=== PATIENT | female | born 1970 | race Caucasian/White ===

== ENCOUNTER 2020-06-09 07:41 | Day surgery (SDC) | payer OTHER, SELFPAY ==
[2020-06-07 16:12] VITALS: BMI 19.2
[2020-06-09] VITALS (7 sets, daily range): BP systolic 89–125; BP diastolic 50–81; PULSE 50–59; RESP 15–16; TEMP 36.2–36.3; O2SAT 98–99
[2020-06-09 08:01] LABS: Urine Pregnancy, HCG Qual. Negative (Negative)
[2020-06-09 08:40] LABS: Coronavirus 19 IgG Antibody Positive (Negative); Coronavirus 19 IgM Antibody Negative (Negative)
--- NOTE | 2020-06-09 09:29 | HMH.ANESCL ---
[facility] Anesthesia Checklist - Patient Identification Patient Identification: Arm Band, Verbal (Name & ) - Structural Data Admitted From: Home Planned Operative Procedure/s: EGD Consent for Planned Operative Procedure(s) Verified: Yes Verified Documents: Surgical Consent, History and Physical - Chart Verification Results Verified: HCG - Additional verifications Patient : No Anesthesia Reactions: No - Airway Assessment C-Spine Mobility Assessed: Yes TMJ Mobility Assessed: Yes Dentition: Good Dentition - Neurological Assessment Level of Consciousness: Awake, Alert, Appropriate, Follows Commands Hx Seizures: No Numbness or tingling in extremities: No - Anesthesia Plan Anesthesia Risk discussed: Yes Anesthesia Plan: Verified ASA Class: III Anesthesia Type: MAC [facility] History I have reviewed the patient's past medical history: Yes Medical History: Reports:: Anxiety, Asthma, Depression, Gastroesophageal Reflux Disease(GERD), Palpitations, Valvular Heart Disease (MVP) Denies:: Cancer, Diabetes Mellitus Type 1, Diabetes Mellitus Type 2, Internal Pacemaker, MRSA, Seizures *Have you ever received a pneumonia vaccine?: No *Have you received a flu vaccine this season?: Yes Other Medical History: Reports: Hypothyroidism Comment:: dysphagia Anesthesia experience/problems:: None Laterality Cases: Bilateral: Tonsillectomy Other Surgeries: Yes: , Hernia Repair, Other. No: Pacemaker Amputation: No Fractures: No Comment: Breast augmentation - *Social History Last grade of school completed: Advanced degree Smoking Status: Never smoker Alcohol Intake: current Alcohol Intake Frequency:: a few times a week Substance Use Type: denies use *Occupational Status:: employed Housing: house Household Members: family *Travel in the last 8 weeks: Inside the [facility] Family Hx:: Other (NA)
--- NOTE | 2020-06-09 09:42 | HMH.PROC ---
[facility] Procedure Note Procedure Note:: Upper Endoscopy Procedure Report: Esophagogastroduodenoscopy with cold biopsies and TTS balloon dilation Endoscopost: Miah Grullon II, MD Referring Physician: Ritesh Garcia MD/ Zhane aKtz MD Date of Procedure: June 09, 2020 Equipment: Olympus GIF 180 standard upper endoscope Sedation: MAC sedation Indications: Mrs. Kim is a 49-year-old female with episodes of dyspnea and coughing. She does have some chronic asthma. She has had pneumonia 4 times in the last year. The patient also reports retrosternal chest pain and pressure with some globus sensation, dysphagia, heartburn and pyrosis. The patient will have dysphagia with associated hiccups. She does get some belching. She also has some gnawing dyspepsia intermittently. This is her first upper endoscopy. She does have a number of IgE mediated allergies including tree nuts (walnuts and pecan). Her recent CBC showed normal hemoglobin 13.6 and hematocrit 41.4. The patient did have a colonoscopy in October 2018. She does have some functional diarrhea intermittently. Her paternal grandfather had colon cancer at the age of 60. She did have a normal colonoscopy but I did do monopolar coagulation/ablation of her internal hemorrhoids at that time. Procedure: Prior to the procedure, a history and physical exam was performed, and patient's medications and allergies were reviewed. The risks, benefits and alternatives of the sedation and procedure were discussed with the patient. All questions were answered and informed consent was obtained. The patient was brought to the procedure room. Patient identification and proposed procedure were verified by the physician and the nurse. The patient was placed in a left lateral decubitus position and the scope was passed under direct vision. Throughout the procedure, the patient's blood pressure, pulse, and oxygen saturations were monitored continuously. The upper GI endoscopy was accomplished without difficulty. The patient tolerated the procedure well. Findings: The scope was passed directly into the upper esophagus and advanced to the third portion of the duodenum. The post bulbar duodenum and duodenal bulb were normal with normal mucosa and conniventes. There was no scalloping or evidence of celiac disease. The scope was withdrawn through a normal duodenal bulb and pylorus into the stomach. There was some bile reflux with linear reactive gastropathy of the antrum and body of the stomach. The remainder of the antrum, body and fundus of the stomach were grossly normal. Upon retroflexion there was no hiatal hernia. 2 biopsies were taken in the antrum and along the lesser curvature for histology to rule out gastritis and/or H pylori. The scope was then withdrawn into the esophagus. There was a serrated Z-line and biopsies were taken at the GE junction. There was no evidence of reflux esophagitis or Saldivar's esophagus. Cold biopsies were taken from the middle/distal and proximal esophagus to rule out eosinophilic esophagitis. There was no corrugation, furrowing or striation and no evidence of eosinophilic esophagitis. There was no Schatzki's ring. There were strong tertiary contractions and evidence of moderate esophageal dysmotility. The entire esophagus was dilated to 60 [place]/20 mm with a TTS hydrostatic balloon. There was some resistance at the cricopharyngeus. The remainder of the esophageal mucosa was normal. Impression: 1. Moderate esophageal dysmotility with nonerosive GERD and cricopharyngeal spasm (esophageal dyskinesia) 2. Bile reflux with linear reactive gastropathy Plan: I will follow-up the biopsies. I do feel that the patient has functional GERD with esophageal dyskinesia/esophageal spasm. We will discuss additional dietary measures and treatment options. The patient did have Covid IgG antibodies which may infer some immunity. Her IgM antibodies were negative.
== END 2020-06-09 10:53 | disposition home or self-care (01) ==
PROVIDERS: PCP Internal Medicine; Visit Provider Internal Medicine Gastroenterology
PROC: 0DJ08ZZ Inspection of Upper Intestinal Tract, Via Natural or Artificial Opening Endoscopic (ICD-10-PCS; CPT 43235; principal; 2020-06-09 09:30)
DX: K22.4 Dyskinesia of esophagus (principal); K21.9 Gastro-esophageal reflux disease without esophagitis; J39.2 Other diseases of pharynx; K31.9 Disease of stomach and duodenum, unspecified; J45.909 Unspecified asthma, uncomplicated; Z87.01 Personal history of pneumonia (recurrent); I34.1 Nonrheumatic mitral (valve) prolapse; F41.9 Anxiety disorder, unspecified; F32.9 Major depressive disorder, single episode, unspecified; R00.2 Palpitations; E03.9 Hypothyroidism, unspecified; Z88.6 Allergy status to analgesic agent
CPT/HCPCS: 43239; 43249; 36415; 81025; 86328; C1726